=== PATIENT | male | born 1940 | race African-American/Black ===

== ENCOUNTER 2016-07-19 09:56 | Inpatient (IN) | payer OTHER ==
[2016-07-08 09:35] LABS: HEMATOCRIT 33.6 % (40.0-51.0); HEMOGLOBIN 10.8 g/dL (13.6-17.8)
[2016-07-08 09:40] LABS: BUN (BLOOD UREA NITROGEN) 15 MG/DL (6-23); CALCIUM, SERUM 8.1 MG/DL (8.5-10.4); CHLORIDE, SERUM 106 MMOL/L (96-112); CO2 (CARBON DIOXIDE) 26 MMOL/L (24-34); CREATININE 1.52 MG/DL (0.70-1.30); GFR AFRICAN AMERICAN 52 ML/MIN (>=60); GFR NON AFRICAN AMERICAN 44 ML/MIN (>=60); GLUCOSE, SERUM 206 MG/DL (60-99); POTASSIUM, SERUM 4.2 MMOL/L (3.5-5.3); SODIUM, SERUM 142 MMOL/L (135-148)
--- NOTE | ~2016-07-19 | DS ---
Discharge Summary [place] [address] [place]. [address] NAME: ISMA BE JR : 44 STATUS : DIS IN PAT#: [id number] AGE: 76 ADM/REG DATE : 07/19/16 MR#: [id number] REPORT SERV DATE: 07/30/16 DICTATED BY: BRUCE FLANNERY II DATE: 07/29/16 REPORT STATUS : Draft TRANSCRIBED BY: RITIKA DATE: 07/29/16 Data Collection from hospitalization DISCHARGE DIAGNOSES: 1. Severe stenosis of L3-L4. 2. 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 3. Diabetes. 4. Hypertension. 5. Anxiety. 6. History of kidney cancer. 7. Depression. 8. Gout. 9. Kidney disease. 10.Osteoarthritis. CONSULTATIONS: None. PROCEDURES PERFORMED: 1. Posterior facetectomy and laminectomy, L3-4. 2. Interbody arthrodesis, L3-L4. 3. Application of prosthetic device, L3-L4. 4. Posterolateral arthrodesis, L3-L4. 5. Hardware removal, L4-5. 6. Instrumentation, nonsegmental, L3-4. 7. Use of local autograft, allograft substitute, and bone morphogenic protein. 8. Use of microscope and stereotactic spinal imaging, 07/19/2016. PATHOLOGY: Bone and tissue; lumbar spinal hardware; fragments of hyaline cartilage with degenerative changes; dense fibrous connective tissue, muscle and bone present; orthopedic hardware - see gross description. DISCHARGE MEDICATIONS: 1. Aspirin 81 mg every morning. 2. Cymbalta 60 mg every evening. 3. Neurontin 600 mg twice a day. 4. Hydrochlorothiazide 25 mg every morning. 5. Zestril 40 mg every morning. 6. Glucophage 1000 mg twice a day. 7. Multivitamins 1 tablet daily. 8. Prilosec 20 mg every morning. 9. Percocet 7.5/325 one to two tablets every 4 to 6 hours as needed. 10.Crestor 10 mg at bedtime. 11.Flomax 0.4 mg every morning. 12.Trazodone 300 mg at bedtime. CONDITION AT DISCHARGE: Stable. DISPOSITION: The patient was discharged home on a 2200-calorie diabetic diet with activities Discharge Summary [place] [address] [address] NAME: ISMA BE JR : 44 STATUS : DIS IN PAT#: [id number] AGE: 76 ADM/REG DATE : 07/19/16 MR#: [id number] REPORT SERV DATE: 07/30/16 DICTATED BY: BRUCE FLANNERY II DATE: 07/29/16 REPORT STATUS : Draft TRANSCRIBED BY: RITIKA DATE: 07/29/16 as instructed. He will follow up with me on 08/13/2016. HOSPITAL COURSE: This is a 76-year-old man, who had complained of lumbar spine related symptoms. The symptoms are located in the lower back with radiation into the bilateral lower extremities with associated tingling and weakness. The patient reports that they were last seen in the office about seven months prior to this admission. He had a recent EMG study. When asked about the severity level of his symptoms, the patient reported a pain level of 8 to 9 on a scale of 0 to 10. He reports that his pain had gotten worse. Treatment options were discussed and it was elected to proceed with surgical intervention. He was admitted to the hospital at this time for further evaluation and treatment. Upon admission, he was taken to the operating room where he underwent the above-mentioned procedure. He tolerated this well, and there were no complications. On postop day #1, he had some slight confusion. He remained stable postoperatively. We encouraged him to mobilize. On postop day #2, we decreased his medication due to sedation. We encouraged him to be up, sitting in a bedside chair. He became more awake. Discharge planning was performed on 07/23/2016. Discharge instructions were given. Due to his improved and stable condition, he was discharged home with the above-stated instructions. Information collected by: [place] I submit the above information as my discharge summary. JOVAN/RITIKA Bruce Flannery II, M.D. / [id number] CC: Yenifer No II, M.D. Jack McCallie, M.D.
--- NOTE | ~2016-07-19 | OP ---
Record Of Operation [place] [id number] [facility] [place]. [address] NAME: ISMA BE JANNET TINOCO : 44 STATUS : ADM IN [facility]#: [id number] AGE: 76 ADM/REG DATE : 07/19/16 MR#: [id number] REPORT SERV DATE: 07/22/16 DICTATED BY: BRUCE FLANNERY II DATE: 07/22/16 REPORT STATUS : Draft TRANSCRIBED BY: MODL DATE: 07/22/16 DATE OF PROCEDURE: 07/19/2016 PREOPERATIVE DIAGNOSES: 1. Severe stenosis, L3-L4. 2. 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 POSTOPERATIVE DIAGNOSES: 1. Severe stenosis, L3-L4. 2. 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 PROCEDURES: 1. Posterior facetectomy and laminectomy, L3-4. 2. Interbody arthrodesis, L3-L4. 3. Application of prosthetic device, L3-L4. 4. Posterolateral arthrodesis, L3-L4. 5. Hardware removal, L4-5. 6. Instrumentation, nonsegmental, L3-4. 7. Use of local autograft, allograft substitute, and bone morphogenic protein. 8. Use of the microscope and stereotactic spinal imaging. SURGEON: Bruce Flannery M.D. FLUIDS: 3 L of lactated Ringer's. ESTIMATED BLOOD LOSS: 100 mL. 500 mL albumin. DRAINS: One drain. COMPLICATIONS: None. ANTIBIOTIC: Preoperatively. IMPLANTS: Alphatec. PREOPERATIVE HISTORY: This is a friendly 76-year-old gentleman, who is well-known to me. He did exceptionally well following a fusion approximately five years ago. We discussed the risks and benefits of surgery at L3-4. He had severe spinal stenosis and severe facet changes at L3-4. I simply felt that an aggressive facetectomy would be required with greater than 75% resection bilaterally. We discussed the risks and benefits of the surgery. He has minimal back pain, predominantly stenosis, and neurogenic claudication. DESCRIPTION OF PROCEDURE: After informed consent was obtained, the patient was brought to the operating room at his request and general anesthesia was achieved. He was placed in Record Of Operation [place] [id number] [facility] [place]. [address] NAME: [place] SOTOMAYOR JANNET TINOCO : 44 STATUS : ADM IN PAT#: [id number] AGE: 76 ADM/REG DATE : 07/19/16 MR#: [id number] REPORT SERV DATE: 07/22/16 DICTATED BY: BRUCE FLANNERY II DATE: 07/22/16 REPORT STATUS : Draft TRANSCRIBED BY: RITIKA DATE: 07/22/16 prone position and the back was prepped and draped in a sterile fashion. The stereotactic spinal imaging was initiated and the stereotactic guidance was then used throughout the remainder of the case. At this point, the minimally invasive incision was performed on the left. The quadrant retractor was placed. Somewhat surprisingly, we had to use the 9 cm blades to access the L3-4 and L4-5 levels. He is a very large man, but not excessively obese. However, his posterior musculature was very thick. Overall, this contributed to the difficulty of the case. The case itself took much longer than normal. This was because of the depth of the working area as well as the severe stenosis we encountered at L3-4. At this point, the microscope was brought in place, and under microscopic visualization, we then evaluated the L3-4 area. The facet capsule was removed. At this point, we then removed the top nuts and the carmen at L4-5. At this point, we removed the L4 screw to allow facetectomy and the interbody arthrodesis as well as to improve the visualization of the canal and the interbody technique. We maintained the L5 screw actually and later simply placed a screw into L3 and 4, and placed a longer carmen so as to ensure better biomechanical superiority. At this point, the facetectomy was now performed. Again, this was done under microscopic visualization with the assistance of stereotactic guidance. The [id number] decompression was achieved. Both facets were now aggressively removed and the canal and foramen were well-decompressed. The dura was then well-visualized. Again, this was very difficult because of the severe stenosis noted not only in the canal but the foramen in the lateral recesses. This took an exceptionally long amount of time. Fortunately, we did not encounter any CSF. This was somewhat surprising because of the severe stenosis and the moderate amount of scarring, likely from the previous fusion. At this point, the L3 and L4 nerve roots had been adequately decompressed. Next, the L4 nerve root was gently retracted and the interbody arthrodesis was initiated with diskectomy. The disk was now removed and the endplates were prepared. The tye and the curettes were used to remove cartilage and disk. Punctate bleeding bone was identified on both endplates. Next, the area was irrigated followed by placement of local autograft and allograft substitute into the anterior disk space. The prosthetic device was then well-placed at L3- 4. Excellent fit was obtained. Next, the pedicle screws were then applied at L3 using stereotactic guidance and L4. I used the different trajectory at L4. This was so we could have a more convergent angle. I also thought this would help with achieving better bone purchase. At this point, the carmen was then assembled and tightened at L3-L4, and the preexisting L5 screw (Amendia). At this point, we then decorticated the transverse process of L3 and L4, and local autograft, allograft substitute, and bone morphogenic protein were placed along the gutter. A deep drain was placed. On the right side, we then performed a minimally invasive incision, and we were able to remove the L4 and L5 screws. We then placed a screw into L3. Once again, I then used a different angle for the L4 screw. A repeat CT scan confirmed acceptable placement of the Record Of Operation [address] [address] NAME: ISMA BE : 44 STATUS : ADM IN [facility]#: [id number] AGE: 76 ADM/REG DATE : 07/19/16 MR#: [id number] REPORT SERV DATE: 07/22/16 DICTATED BY: BRUCE FLANNERY II DATE: 07/22/16 REPORT STATUS : Draft TRANSCRIBED BY: MODL DATE: 07/22/16 implants. The carmen was then placed on the right side and final tightening was performed. At this point, I was pleased with the decompression as well as the placement of the implants as confirmed by the repeat CT scan. A deep drain was placed on the left followed by standard closure, and the patient was then extubated and transferred to the PACU in stable condition. CHARLES/RITIKA Bruce Flannery II, M.D. / [id number] CC: Yenifer No II, M.D.
[~2016-07-19 09:56] MED LIST: ALEVE220 MG PO; ASAB PO; CRESTOR10 PO; CYMBALTA20 PO; CYMBALTA60 PO; FLOMAX4 PO; GLUCPH PO; GOODY POWDER; HYDROCHLOROT25 MG PO; METAMUCIL CAN7 OZ PO; MOBIC15 MG PO; MULTIPLE VIT PO; MULTIVIT/MIN PO; NEUR600 PO; PRILO PO; TRAZODONE150 MG PO; ULTRACET PO; ULTRAM50 PO; ZESTRIL40 MG PO
[2016-07-19 19:09] LABS: BASOPHILS 0.1 %; BASOPHILS ABSOLUTE 0.01 10/3/uL (0.0-0.16); EOSINOPHILS 0.8 %; EOSINOPHILS ABSOLUTE 0.08 10/3/uL (0.0-0.53); IMMATURE GRANULOCYTES 0.4 %; IMMATURE GRANULOCYTES ABSOLUTE 0.04 10/3/uL (0.0-0.11); LYMPHOCYTES 15.5 %; LYMPHOCYTES ABSOLUTE 1.59 10/3/uL (0.67-4.30); MEAN CORPUS HGB CONC 31.1 g/dL (32.0-36.0); MEAN CORPUSCULAR VOLUME 89.8 fL (80-100); MONOCYTES 4.8 %; MONOCYTES ABSOLUTE 0.49 10/3/uL (0.21-1.20); NEUTROPHILS 78.4 %; NEUTROPHILS ABSOLUTE 8.08 10/3/uL (2.02-8.40); PLATELET COUNT 189 10/3/uL (150-400); RBC DISTRIBUTION WIDTH 14.5 % (12.0-16.0); RED CELL COUNT 3.22 10/6/uL (4.7-6.1)
[2016-07-19 19:10] LABS: HEMATOCRIT 28.9 % (40.0-51.0); MANUAL DIFF NO %; WHITE BLOOD CELLS 10.3 10/3/uL (4.5-10.5)
[2016-07-19 19:30] LABS: BUN (BLOOD UREA NITROGEN) 13 MG/DL (6-23); CALCIUM, SERUM 7.7 MG/DL (8.5-10.4); CHLORIDE, SERUM 108 MMOL/L (96-112); CO2 (CARBON DIOXIDE) 28 MMOL/L (24-34); CREATININE 1.56 MG/DL (0.70-1.30); GFR AFRICAN AMERICAN 50 ML/MIN (>=60); GFR NON AFRICAN AMERICAN 43 ML/MIN (>=60); GLUCOSE, SERUM 203 MG/DL (60-99); POTASSIUM, SERUM 4.3 MMOL/L (3.5-5.3); SODIUM, SERUM 144 MMOL/L (135-148)
[2016-07-20 05:00] LABS: BASOPHILS 0.2 %; BASOPHILS ABSOLUTE 0.02 10/3/uL (0.0-0.16); EOSINOPHILS 0.4 %; EOSINOPHILS ABSOLUTE 0.04 10/3/uL (0.0-0.53); HEMATOCRIT 30.2 % (40.0-51.0); HEMOGLOBIN 9.4 g/dL (13.6-17.8); IMMATURE GRANULOCYTES 0.3 %; IMMATURE GRANULOCYTES ABSOLUTE 0.03 10/3/uL (0.0-0.11); LYMPHOCYTES 10.3 %; LYMPHOCYTES ABSOLUTE 0.94 10/3/uL (0.67-4.30); MEAN CORPUS HGB CONC 31.1 g/dL (32.0-36.0); MEAN CORPUSCULAR HEMOGLOB 28.7 pg (26.0-34.0); MEAN CORPUSCULAR VOLUME 92.1 fL (80-100); MEAN PLATELET VOLUME 10.5 fL (9.2-13.0); MONOCYTES 7.2 %; MONOCYTES ABSOLUTE 0.65 10/3/uL (0.21-1.20); NEUTROPHILS 81.6 %; NEUTROPHILS ABSOLUTE 7.41 10/3/uL (2.02-8.40); PLATELET COUNT 198 10/3/uL (150-400); RBC DISTRIBUTION WIDTH 14.5 % (12.0-16.0); RED CELL COUNT 3.28 10/6/uL (4.7-6.1); WHITE BLOOD CELLS 9.1 10/3/uL (4.5-10.5)
[2016-07-20 05:01] LABS: MANUAL DIFF NO %
[2016-07-20 05:15] LABS: BUN (BLOOD UREA NITROGEN) 13 MG/DL (6-23); CALCIUM, SERUM 7.6 MG/DL (8.5-10.4); CHLORIDE, SERUM 106 MMOL/L (96-112); CO2 (CARBON DIOXIDE) 27 MMOL/L (24-34); CREATININE 1.56 MG/DL (0.70-1.30); GFR AFRICAN AMERICAN 50 ML/MIN (>=60); GFR NON AFRICAN AMERICAN 43 ML/MIN (>=60); GLUCOSE, SERUM 202 MG/DL (60-99); POTASSIUM, SERUM 4.9 MMOL/L (3.5-5.3); SODIUM, SERUM 142 MMOL/L (135-148)
[2016-07-23] MEDS ORDERED: PERCOCET 7.5/321 TAB PO (12:15)
[2016-12-25] MEDS ORDERED: [UNRECOGNIZED DRUG - OTHER] PO (16:02)
[2016-12-25] MEDS ORDERED: CRESTOR10 PO (16:03)
[2016-12-25] MEDS ORDERED: LISINOPRIL40 MG PO (16:03)
[2016-12-25] MEDS ORDERED: GLUCOPHAGE1000 MG PO (16:03)
[2016-12-25] MEDS ORDERED: ASAB PO (16:04)
[2016-12-25] MEDS ORDERED: TRAZODONE300 MG PO (16:05)
[2016-12-25] MEDS ORDERED: PRILO PO (16:05)
[2016-12-25] MEDS ORDERED: CYMBALTA60 PO (16:05)
[2016-12-25] MEDS ORDERED: FLOMAX4 PO (16:07)
[2016-12-25] MEDS ORDERED: ULTRACET PO (16:07)
[2016-12-25] MEDS ORDERED: NORV5 PO (16:08)
[2016-12-25] MEDS ORDERED: AMARYL2 PO (16:08)
[2016-12-25] MEDS ORDERED: PSEUDOEPHEDRINE PO (16:10)
[2016-12-25] MEDS ORDERED: FEXOFENADINE PO (16:10)
[2016-12-25] MEDS ORDERED: REFRESH OPH SO0.3 ML PO (16:11)
[2016-12-29] MEDS ORDERED: ZITH250 PO (09:46)
[2016-12-29] MEDS ORDERED: OMNICEF300 PO (09:47)
[2016-12-29] MEDS ORDERED: NORCO1 TA1 PO (09:47)
== END 2016-07-23 13:12 | disposition home or self-care (01) | DRG 460 ==
LOC: SDC/OF 09:56 → 3SO 19:50
PROVIDERS: Orthopaedic Surgery
PROC: 0SG00AJ Fusion of Lumbar Vertebral Joint with Interbody Fusion Device, Posterior Approach, Anterior Column, Open Approach (ICD-10-PCS; principal; 2016-07-19 11:45)
PROC: 4A11X4G Monitoring of Peripheral Nervous Electrical Activity, Intraoperative, External Approach (ICD-10-PCS; 2016-07-19 11:45)
DX: M51.36 Other intervertebral disc degeneration, lumbar region (principal); E11.22 Type 2 diabetes mellitus with diabetic chronic kidney disease; I12.9 Hypertensive chronic kidney disease with stage 1 through stage 4 chronic kidney disease, or unspecified chronic kidney disease; N18.9 Chronic kidney disease, unspecified; K21.9 Gastro-esophageal reflux disease without esophagitis; E78.5 Hyperlipidemia, unspecified
CPT/HCPCS: 80048; 82962; 85014; 85018; 85025; 87641; 88300; 88304; 88311; 93005; 97110-GP; 97116-GP; 97161-GP; 97530-GP; A9270-GY; C1713; C1768; J0690; J1170; J2250; J2370; J2405; J2710; J3010; P9045